=== PATIENT | male | born 1945 | race Caucasian/White ===

== ENCOUNTER → 2020-07-19 | Outpatient (CLI) | payer OTHER ==
[~2020-07-19] MED LIST: AMLODIPINE10 MG PO; ASPIRIN81 M1 PO; ATIVAN0.5 MG PO; EPA FISH OIL1000 MG PO; LEVOTHYROXIN0.125 MG PO; LEVOTHYROXINE0.15 MG PO; LIPITOR10 MG PO; METOPROLOL SR100 MG PO; MULTIVITAMIN1 CTB PO; PRILOSEC20 MG PO; VITAMIN D31000 IU PO
== END | disposition home or self-care (01) ==
LOC: US 08:01
PROVIDERS: ATTEND Nurse Practitioner Family
DX: E87.1 Hypo-osmolality and hyponatremia (principal)

== ENCOUNTER → 2021-08-06 | Outpatient (CLI) | payer OTHER | END | disposition home or self-care (01) | LOC: CARD 09:11 | PROVIDERS: ATTEND Nurse Practitioner Family | DX: I35.1 Nonrheumatic aortic (valve) insufficiency (principal) ==

== ENCOUNTER 2023-01-13 22:06 | Inpatient (IN) | payer OTHER ==
[~2023-01-13] VITALS: Ht 165.1 cm; Wt 64.9 kg
[~2023-01-13 22:06] MED LIST changes: -LEVOTHYROXIN0.125 MG PO; +LEVOTHYROXINE112 MC1 PO; -VITAMIN D31000 IU PO; +VITAMIN D3125 MC1 PO
[2023-01-13 22:09] VITALS: BP 200/119
[2023-01-13 22:56] LABS: ACT PARTIAL THROMBO TIME 29.5 SECONDS (20.0-32.1)
[2023-01-13 23:00] VITALS: BP 117/70
[2023-01-13 23:11] LABS: ALKALINE PHOSPHATASE 91 U/L (46-116); BUN 12 mg/dl (9-23); CHLORIDE 79 mmol/L (98-107); LIPASE 45 U/L (12-53); POTASSIUM 2.6 mmol/L (3.4-5.1); SGPT/ALT 12 U/L (10-49); TOTAL PROTEIN 7.5 gm/dL (6.0-8.0)
[2023-01-13 23:20] VITALS: BP 107/63
[2023-01-13] MEDS ORDERED: PREDNISONE50 MG PO (23:33)
[2023-01-13] MEDS ORDERED: AMOX-CLAV 875-1 EACH PO (23:33)
[2023-01-13 23:36] LABS: BASO % 0.2 % (0.0-1.0); EOS # 0.2 10*3/uL (0.0-0.4); EOS % 3.2 % (1.0-4.0); HEMATOCRIT 30.4 % (42.0-52.0); LYMPH # 0.5 10*3/uL (1.3-4.4); LYMPH % 8.9 % (27.0-41.0); MEAN CELL VOLUME 85.6 fl (80.0-94.0); MEAN CORPUSCULAR HGB 31.5 pg (27.0-31.0); MEAN CORPUSCULAR HGB CONC 36.8 g/dl (33.0-37.0); MEAN PLATELET VOLUME 8.4 fl (9.6-12.3); MONO # 0.4 10*3/uL (0.1-1.0); MONO % 7.8 % (3.0-9.0); NEUT # 4.5 10*3/uL (2.3-7.9); NEUT % 79.4 % (47.0-73.0); PLATELET COUNT AUTOMATED 277 10*3/uL (130-400); RED BLOOD COUNT 3.55 10*6/uL (4.50-5.90); WHITE BLOOD COUNT 5.6 10*3/uL (4.8-10.8)
[2023-01-14] VITALS (11 sets, daily range): BP systolic 70–168; BP diastolic 46–96
[2023-01-14 02:44] LABS: POTASSIUM 2.7 mmol/L (3.4-5.1); URIC ACID 4.1 mg/dL (3.7-9.2)
[2023-01-14 03:04] LABS: VENOUS PH 7.364 (7.37-7.45)
[2023-01-14 04:29] LABS: BILIRUBIN Negative (Negative); BLOOD Negative (Negative); CLARITY Clear (Clear); COLOR Yellow (Yellow); GLUCOSE Negative (Negative); KETONE Negative (Negative); LEUKO ESTERASE Negative (Negative); NITRITE Negative (Negative); PH 7.5 (4.5-8.0); SPECIFIC GRAVITY <= 1.005 (1.001-1.030); UROBILINOGEN 0.2 E.U./dl (0.0-1.0)
[2023-01-14 04:40] LABS: RBC 0-2 rbc/hpf (0-2); WBC 0-2 wbc/hpf (0-5)
[2023-01-14 06:17] LABS: BASO % 0.2 % (0.0-1.0); EOS % 0.5 % (1.0-4.0); HEMATOCRIT 32.2 % (42.0-52.0); LYMPH # 0.5 10*3/uL (1.3-4.4); LYMPH % 6.3 % (27.0-41.0); MEAN CELL VOLUME 84.7 fl (80.0-94.0); MEAN CORPUSCULAR HGB 31.1 pg (27.0-31.0); MEAN CORPUSCULAR HGB CONC 36.6 g/dl (33.0-37.0); MEAN PLATELET VOLUME 9.1 fl (9.6-12.3); MONO # 0.5 10*3/uL (0.1-1.0); MONO % 5.9 % (3.0-9.0); NEUT % 86.6 % (47.0-73.0); RED CELL DISTRI WIDTH 11.9 % (0-14.5); WHITE BLOOD COUNT 8.1 10*3/uL (4.8-10.8)
[2023-01-14 06:47] LABS: ALKALINE PHOSPHATASE 90 U/L (46-116); BUN 11 mg/dl (9-23); CHLORIDE 86 mmol/L (98-107); CHOLESTEROL 121 mg/dL (<200); FREE T4 1.77 ng/dl (0.89-1.76); LDL CHOLESTEROL 55 mg/dL (9-159); SGPT/ALT 11 U/L (10-49); TOTAL PROTEIN 6.9 gm/dL (6.0-8.0); TRIGLYCERIDES 42 mg/dl (<150)
[2023-01-14 06:53] LABS: PLATELET COUNT AUTOMATED 364 10*3/uL (130-400)
[2023-01-14 07:28] LABS: VITAMIN D, 25-HYDROXY 77.8 ng/mL (30-100)
[2023-01-14 08:26] LABS: BUN 10 mg/dl (9-23); CHLORIDE 87 mmol/L (98-107); POTASSIUM 3.2 mmol/L (3.4-5.1)
[2023-01-14 12:19] LABS: BUN 10 mg/dl (9-23); CHLORIDE 89 mmol/L (98-107); POTASSIUM 3.9 mmol/L (3.4-5.1)
[2023-01-14] MEDS ORDERED: LISINOPRIL-HCT1 EACH PO (14:53)
[2023-01-14] MEDS ORDERED: NICOTINE LOZENGE2 M1 BC (14:58)
[2023-01-14] MEDS ORDERED: SUPER MULTIPLE1 EACH PO (14:58)
[2023-01-14 16:48] LABS: BUN 10 mg/dl (9-23); CHLORIDE 92 mmol/L (98-107); POTASSIUM 3.6 mmol/L (3.4-5.1)
[2023-01-14 20:50] LABS: BUN 8 mg/dl (9-23); CHLORIDE 94 mmol/L (98-107); POTASSIUM 3.5 mmol/L (3.4-5.1)
[2023-01-15 00:30] LABS: BUN 8 mg/dl (9-23); CHLORIDE 91 mmol/L (98-107); POTASSIUM 3.3 mmol/L (3.4-5.1)
[2023-01-15 04:00] VITALS: BP 109/60
[2023-01-15 06:07] LABS: BUN 7 mg/dl (9-23); CHLORIDE 92 mmol/L (98-107); POTASSIUM 3.4 mmol/L (3.4-5.1)
[2023-01-15 07:04] LABS: BASO % 0.1 % (0.0-1.0); EOS # 0.1 10*3/uL (0.0-0.4); EOS % 1.2 % (1.0-4.0); HEMATOCRIT 30.6 % (42.0-52.0); LYMPH # 0.5 10*3/uL (1.3-4.4); LYMPH % 7.9 % (27.0-41.0); MEAN CELL VOLUME 87.2 fl (80.0-94.0); MEAN CORPUSCULAR HGB 31.3 pg (27.0-31.0); MEAN CORPUSCULAR HGB CONC 35.9 g/dl (33.0-37.0); MEAN PLATELET VOLUME 9.6 fl (9.6-12.3); MONO # 0.6 10*3/uL (0.1-1.0); MONO % 8.5 % (3.0-9.0); NEUT # 5.5 10*3/uL (2.3-7.9); NEUT % 81.7 % (47.0-73.0); PLATELET COUNT AUTOMATED 336 10*3/uL (130-400); RED BLOOD COUNT 3.51 10*6/uL (4.50-5.90); RED CELL DISTRI WIDTH 12.3 % (0-14.5); WHITE BLOOD COUNT 6.7 10*3/uL (4.8-10.8)
[2023-01-15 08:00] VITALS: BP 183/101
[2023-01-15 09:26] VITALS: BP 133/68
[2023-01-15 09:29] LABS: BUN 7 mg/dl (9-23); CHLORIDE 94 mmol/L (98-107); POTASSIUM 3.4 mmol/L (3.4-5.1)
[2023-01-15 12:00] VITALS: BP 172/98
[2023-01-15 12:56] LABS: BUN 7 mg/dl (9-23); CHLORIDE 96 mmol/L (98-107); POTASSIUM 3.2 mmol/L (3.4-5.1)
[2023-01-15 16:00] VITALS: BP 183/98
[2023-01-15 18:21] LABS: BUN 6 mg/dl (9-23); CHLORIDE 95 mmol/L (98-107); POTASSIUM 3.7 mmol/L (3.4-5.1)
[2023-01-15 20:00] VITALS: BP 191/99
[2023-01-16] VITALS: BP 170/91
[2023-01-16 00:46] LABS: BUN 5 mg/dl (9-23); CHLORIDE 97 mmol/L (98-107); POTASSIUM 3.6 mmol/L (3.4-5.1)
[2023-01-16 05:34] LABS: BUN 6 mg/dl (9-23); CHLORIDE 97 mmol/L (98-107); POTASSIUM 3.4 mmol/L (3.4-5.1)
[2023-01-16 06:01] LABS: BASO % 0.1 % (0.0-1.0); EOS # 0.1 10*3/uL (0.0-0.4); EOS % 1.2 % (1.0-4.0); HEMATOCRIT 31.1 % (42.0-52.0); LYMPH # 0.6 10*3/uL (1.3-4.4); LYMPH % 8.9 % (27.0-41.0); MEAN CELL VOLUME 87.1 fl (80.0-94.0); MEAN CORPUSCULAR HGB 31.1 pg (27.0-31.0); MEAN CORPUSCULAR HGB CONC 35.7 g/dl (33.0-37.0); MEAN PLATELET VOLUME 9.6 fl (9.6-12.3); MONO # 0.7 10*3/uL (0.1-1.0); MONO % 9.9 % (3.0-9.0); NEUT # 5.4 10*3/uL (2.3-7.9); NEUT % 79.6 % (47.0-73.0); PLATELET COUNT AUTOMATED 363 10*3/uL (130-400); RED BLOOD COUNT 3.57 10*6/uL (4.50-5.90); RED CELL DISTRI WIDTH 12.1 % (0-14.5); WHITE BLOOD COUNT 6.8 10*3/uL (4.8-10.8)
[2023-01-16 08:00] VITALS: BP 129/85
[2023-01-16 12:00] VITALS: BP 170/92
[2023-01-16 12:37] LABS: BUN 6 mg/dl (9-23); CHLORIDE 95 mmol/L (98-107); POTASSIUM 3.8 mmol/L (3.4-5.1)
[2023-01-16 16:00] VITALS: BP 198/102
[2023-01-16 16:16] LABS: BUN 6 mg/dl (9-23); CHLORIDE 96 mmol/L (98-107); POTASSIUM 3.7 mmol/L (3.4-5.1)
[2023-01-16 20:00] VITALS: BP 137/93
[2023-01-17] VITALS: BP 139/85
[2023-01-17 05:24] LABS: BUN 5 mg/dl (9-23); CHLORIDE 95 mmol/L (98-107); POTASSIUM 3.5 mmol/L (3.4-5.1)
[2023-01-17 06:14] LABS: BASO % 0.3 % (0.0-1.0); EOS # 0.2 10*3/uL (0.0-0.4); EOS % 2.5 % (1.0-4.0); HEMATOCRIT 32.1 % (42.0-52.0); LYMPH # 0.7 10*3/uL (1.3-4.4); MEAN CELL VOLUME 87.9 fl (80.0-94.0); MEAN CORPUSCULAR HGB 31.5 pg (27.0-31.0); MEAN CORPUSCULAR HGB CONC 35.8 g/dl (33.0-37.0); MEAN PLATELET VOLUME 9.6 fl (9.6-12.3); MONO # 0.7 10*3/uL (0.1-1.0); MONO % 9.7 % (3.0-9.0); NEUT # 5.6 10*3/uL (2.3-7.9); NEUT % 77.1 % (47.0-73.0); PLATELET COUNT AUTOMATED 378 10*3/uL (130-400); RED BLOOD COUNT 3.65 10*6/uL (4.50-5.90); RED CELL DISTRI WIDTH 12.2 % (0-14.5); WHITE BLOOD COUNT 7.2 10*3/uL (4.8-10.8)
[2023-01-17 08:00] VITALS: BP 90/52
[2023-01-17 09:37] LABS: BUN 5 mg/dl (9-23); CHLORIDE 95 mmol/L (98-107); POTASSIUM 3.4 mmol/L (3.4-5.1)
[2023-01-17 09:54] VITALS: BP 138/92
[2023-01-17 12:00] VITALS: BP 116/75
[2023-01-17 13:24] LABS: BUN 10 mg/dl (9-23); CHLORIDE 95 mmol/L (98-107); POTASSIUM 3.7 mmol/L (3.4-5.1)
[2023-01-17 16:00] VITALS: BP 160/98
[2023-01-17 20:00] VITALS: BP 180/82
[2023-01-18] VITALS: BP 162/82
[2023-01-18 06:31] LABS: BUN 8 mg/dl (9-23); CHLORIDE 100 mmol/L (98-107); POTASSIUM 3.4 mmol/L (3.4-5.1)
[2023-01-18 06:55] LABS: BASO % 0.2 % (0.0-1.0); EOS # 0.3 10*3/uL (0.0-0.4); EOS % 3.6 % (1.0-4.0); HEMATOCRIT 31.5 % (42.0-52.0); LYMPH # 0.8 10*3/uL (1.3-4.4); LYMPH % 10.1 % (27.0-41.0); MEAN CELL VOLUME 87.5 fl (80.0-94.0); MEAN CORPUSCULAR HGB 31.4 pg (27.0-31.0); MEAN CORPUSCULAR HGB CONC 35.9 g/dl (33.0-37.0); MEAN PLATELET VOLUME 9.5 fl (9.6-12.3); MONO # 0.7 10*3/uL (0.1-1.0); MONO % 8.2 % (3.0-9.0); NEUT # 6.3 10*3/uL (2.3-7.9); NEUT % 77.4 % (47.0-73.0); PLATELET COUNT AUTOMATED 384 10*3/uL (130-400); RED CELL DISTRI WIDTH 12.3 % (0-14.5); WHITE BLOOD COUNT 8.1 10*3/uL (4.8-10.8)
[2023-01-18 08:00] VITALS: BP 168/104
[2023-01-18 10:33] LABS: BUN 8 mg/dl (9-23); CHLORIDE 97 mmol/L (98-107); POTASSIUM 3.6 mmol/L (3.4-5.1)
[2023-01-18] MEDS ORDERED: LISINOPRIL20 MG PO (11:14)
[2023-01-18] MEDS ORDERED: SODIUM CHLORI1000 M5 PO (11:14)
[2023-01-18] MEDS ORDERED: MAGNESIUM OXID400 MG PO (11:14)
== END 2023-01-18 11:47 | disposition home or self-care (01) | DRG 640 ==
LOC: ED 22:06 → 4E 01-14 00:17 → EDHOLD 01-14 00:17 → 4E 01-14 01:06 → EDHOLD 01-14 01:06 → 4E 01-14 01:08
PROVIDERS: Family Medicine; Internal Medicine; Internal Medicine Nephrology; Nurse Practitioner Family; Student in an Organized Health Care Education/Training Program; ADMIT Internal Medicine; ATTEND Internal Medicine
DX: E87.1 Hypo-osmolality and hyponatremia (principal); N17.0 Acute kidney failure with tubular necrosis; I10 Essential (primary) hypertension; F17.210 Nicotine dependence, cigarettes, uncomplicated; E87.6 Hypokalemia; J44.9 Chronic obstructive pulmonary disease, unspecified; E78.5 Hyperlipidemia, unspecified; E03.9 Hypothyroidism, unspecified; R94.4 Abnormal results of kidney function studies; E83.42 Hypomagnesemia; E87.8 Other disorders of electrolyte and fluid balance, not elsewhere classified; R71.8 Other abnormality of red blood cells; D75.89 Other specified diseases of blood and blood-forming organs; G90.9 Disorder of the autonomic nervous system, unspecified; I44.0 Atrioventricular block, first degree; I16.0 Hypertensive urgency; Z78.9 Other specified health status

== ENCOUNTER → 2023-02-02 | Outpatient (CLI) | payer MEDICARE ==
[~2023-02-02] MED LIST changes: +AMOX-CLAV 875-1 EACH PO; +LISINOPRIL-HCT1 EACH PO; +LISINOPRIL20 MG PO; +MAGNESIUM OXID400 MG PO; +NICOTINE LOZENGE2 M1 BC; +PREDNISONE50 MG PO; +SODIUM CHLORI1000 M5 PO; +SUPER MULTIPLE1 EACH PO
== END | disposition home or self-care (01) ==
LOC: US 03:47
PROVIDERS: ATTEND Internal Medicine
DX: J43.9 Emphysema, unspecified (principal); R91.1 Solitary pulmonary nodule; Z87.891 Personal history of nicotine dependence

== ENCOUNTER → 2023-05-07 | Outpatient (CLI) | payer MEDICARE ==
[2023-05-07 11:40] LABS: BASO % 0.2 % (0.0-1.0); EOS # 0.2 10*3/uL (0.0-0.4); EOS % 3.5 % (1.0-4.0); HEMATOCRIT 34.4 % (42.0-52.0); LYMPH # 0.6 10*3/uL (1.3-4.4); LYMPH % 10.5 % (27.0-41.0); MEAN CELL VOLUME 92.5 fl (80.0-94.0); MEAN CORPUSCULAR HGB 30.9 pg (27.0-31.0); MEAN CORPUSCULAR HGB CONC 33.4 g/dl (33.0-37.0); MEAN PLATELET VOLUME 8.7 fl (9.6-12.3); MONO # 0.5 10*3/uL (0.1-1.0); MONO % 8.6 % (3.0-9.0); NEUT # 4.4 10*3/uL (2.3-7.9); PLATELET COUNT AUTOMATED 370 10*3/uL (130-400); RED BLOOD COUNT 3.72 10*6/uL (4.50-5.90); RED CELL DISTRI WIDTH 13.1 % (0-14.5); WHITE BLOOD COUNT 5.7 10*3/uL (4.8-10.8)
[2023-05-07 12:11] LABS: BUN 11 mg/dl (9-23); CHLORIDE 97 mmol/L (98-107); POTASSIUM 3.8 mmol/L (3.4-5.1)
[2023-05-07 13:14] LABS: BILIRUBIN Negative (Negative); BLOOD Negative (Negative); CLARITY Clear (Clear); COLOR Yellow (Yellow); GLUCOSE Negative (Negative); KETONE Negative (Negative); LEUKO ESTERASE Negative (Negative); NITRITE Negative (Negative); PH 7.5 (4.5-8.0); UROBILINOGEN 0.2 E.U./dl (0.0-1.0)
[2023-05-07 13:20] LABS: URINE CREATININE RANDOM 59.24 mg/dL
[2023-05-07 13:27] LABS: BACTERIA TRACE; EPITHELIAL CELLS 0-2; WBC 0-2 wbc/hpf (0-5)
== END | disposition home or self-care (01) ==
LOC: LAB 11:20
PROVIDERS: ATTEND Nurse Practitioner Family
DX: E55.9 Vitamin D deficiency, unspecified (principal); N17.9 Acute kidney failure, unspecified; D64.9 Anemia, unspecified

== ENCOUNTER → 2024-05-08 | Outpatient (CLI) | payer OTHER | END | disposition home or self-care (01) | LOC: CT 10:30 | PROVIDERS: ATTEND Radiology Radiation Oncology | DX: J43.2 Centrilobular emphysema (principal); C34.90 Malignant neoplasm of unspecified part of unspecified bronchus or lung; K76.89 Other specified diseases of liver ==

== ENCOUNTER 2024-09-20 13:57 | Emergency (ER) | payer OTHER ==
[~2024-09-20] VITALS: Wt 66.7 kg
[2024-09-20] MEDS ORDERED: SODIUM CHLORIDE 0.9% 500 ML IV ONE (15:15)
[2024-09-20] MEDS ORDERED: ZESTRIL40 MG PO (15:19)
[2024-09-20] MEDS ORDERED: AMLODIPINE BESYL5 MG PO (15:20)
[2024-09-20] MEDS ORDERED: IOHEXOL 300 MG/ML 100 ML VIAL IV ONE (15:20)
[2024-09-20 15:32] LABS: BASO % 0.1 % (0.0-1.0); EOS # 0.2 10*3/uL (0.0-0.4); EOS % 2.5 % (1.0-4.0); HEMATOCRIT 32.4 % (42.0-52.0); MEAN CELL VOLUME 93.1 fl (80.0-94.0); MEAN CORPUSCULAR HGB CONC 33.3 g/dl (33.0-37.0); MEAN PLATELET VOLUME 8.5 fl (9.6-12.3); MONO # 0.5 10*3/uL (0.1-1.0); MONO % 5.8 % (3.0-9.0); NEUT # 6.7 10*3/uL (2.3-7.9); NEUT % 82.8 % (47.0-73.0); PLATELET COUNT AUTOMATED 441 10*3/uL (130-400); RED BLOOD COUNT 3.48 10*6/uL (4.50-5.90); RED CELL DISTRI WIDTH 13.2 % (0-14.5); WHITE BLOOD COUNT 8.1 10*3/uL (4.8-10.8)
[2024-09-20 15:57] LABS: ALKALINE PHOSPHATASE 100 U/L (46-116); BUN 10 mg/dl (9-23); CHLORIDE 97 mmol/L (98-107); POTASSIUM 3.9 mmol/L (3.4-5.1); SGPT/ALT 9 U/L (5-49); TOTAL PROTEIN 7.2 gm/dL (6.0-8.0)
== END 2024-09-20 20:02 | disposition left against medical advice (07) ==
LOC: ED 13:57
PROVIDERS: Emergency Medicine
DX: R04.2 Hemoptysis (principal); I10 Essential (primary) hypertension; K21.9 Gastro-esophageal reflux disease without esophagitis; F17.200 Nicotine dependence, unspecified, uncomplicated; Z53.29 Procedure and treatment not carried out because of patient's decision for other reasons; Z79.899 Other long term (current) drug therapy

== ENCOUNTER → 2024-11-08 | Outpatient (CLI) | payer OTHER ==
[~2024-11-08] MED LIST changes: +AMLODIPINE BESYL5 MG PO; +ZESTRIL40 MG PO
[2024-11-08 11:39] LABS: BASO % 0.2 % (0.0-1.0); EOS # 0.1 10*3/uL (0.0-0.4); EOS % 1.3 % (1.0-4.0); HEMATOCRIT 32.9 % (42.0-52.0); MEAN CELL VOLUME 92.4 fl (80.0-94.0); MEAN CORPUSCULAR HGB 30.3 pg (27.0-31.0); MEAN CORPUSCULAR HGB CONC 32.8 g/dl (33.0-37.0); MEAN PLATELET VOLUME 8.7 fl (9.6-12.3); MONO # 0.7 10*3/uL (0.1-1.0); MONO % 7.5 % (3.0-9.0); NEUT % 83.7 % (47.0-73.0); PLATELET COUNT AUTOMATED 519 10*3/uL (130-400); RED BLOOD COUNT 3.56 10*6/uL (4.50-5.90); RED CELL DISTRI WIDTH 13.1 % (0-14.5); WHITE BLOOD COUNT 9.6 10*3/uL (4.8-10.8)
[2024-11-08 11:55] LABS: BILIRUBIN Negative (Negative); BLOOD Negative (Negative); CLARITY Clear (Clear); COLOR Yellow (Yellow); GLUCOSE Negative (Negative); KETONE Negative (Negative); LEUKO ESTERASE Negative (Negative); NITRITE Negative (Negative); PH 7.5 (4.5-8.0); UROBILINOGEN 0.2 E.U./dl (0.0-1.0)
[2024-11-08 12:04] LABS: RBC 0-2 rbc/hpf (0-2)
[2024-11-08 12:05] LABS: BACTERIA TRACE
[2024-11-08 12:29] LABS: VITAMIN D, 25-HYDROXY 69.7 ng/mL (30-100)
== END | disposition home or self-care (01) ==
LOC: LAB 10:49
PROVIDERS: ATTEND Nurse Practitioner Family
DX: N17.9 Acute kidney failure, unspecified (principal); D64.9 Anemia, unspecified; E55.9 Vitamin D deficiency, unspecified

== ENCOUNTER → 2024-11-08 | Outpatient (CLI) | payer MEDICARE | END | disposition home or self-care (01) | LOC: RAD 10:52 | PROVIDERS: ATTEND Internal Medicine | DX: M51.360 Other intervertebral disc degeneration, lumbar region with discogenic back pain only (principal); M25.78 Osteophyte, vertebrae ==